=== PATIENT | female | born 1990 | race Caucasian/White ===

== ENCOUNTER 2021-05-16 17:53 | Outpatient (RCR) | payer OTHER, SELFPAY ==
[2021-05-16 19:46] VITALS: BP 111/70; PULSE 115
== END 2021-07-06 09:36 | disposition home or self-care (01) ==
LOC: ANHOBOP 17:53
PROVIDERS: Visit Provider Obstetrics & Gynecology
DX: O60.03 Preterm labor without delivery, third trimester (principal); Z3A.36 36 weeks gestation of pregnancy
CPT/HCPCS: 59025

== ENCOUNTER 2021-05-29 06:06 | Inpatient (IN) | payer OTHER, SELFPAY ==
[2021-05-29] VITALS (29 sets, daily range): BP systolic 104–169; BP diastolic 60–95; PULSE 69–114; RESP 16; TEMP 36.1–36.9; BMI 38.4
--- OUTSIDE RECORDS SUMMARY | 2021-05-29 06:14 | XMS_ITS ---
:1990 Author Care Team Providers Name Role Phone Scarlet Primary Care Provider Unavailable Allergies Code Code System Name Reaction Severity Status Onset NKDA ? Medications Name Status Start Date Stop Date ? ? 17-hydroxyprogesterone Unknown ? Not avail able hydroxyprogesterone and cottonseed oil 17-hydroxyprogesterone Unknown ? Not avail able hydroxyprogesterone and cottonseed oil 17-hydroxyprogesterone Unknown ? Not avail able hydroxyprogesterone and cottonseed oil 17-hydroxyprogesterone Unknown ? Not avail able hydroxyprogesterone and cottonseed oil 17-hydroxyprogesterone Unknown ? Not avail able hydroxyprogesterone and cottonseed oil 17-hydroxyprogesterone Unknown ? Not avail able hydroxyprogesterone and cottonseed oil 17-hydroxyprogesterone Unknown ? Not avail able hydroxyprogesterone and cottonseed oil 17-hydroxyprogesterone Unknown ? Not avail able hydroxyprogesterone and cottonseed oil 17-hydroxyprogesterone Unknown ? Not avail able hydroxyprogesterone and cottonseed oil 17-hydroxyprogesterone Unknown ? Not avail able hydroxyprogesterone and cottonseed oil 17-hydroxyprogesterone Unknown ? Not avail able hydroxyprogesterone and cottonseed oil 17-hydroxyprogesterone Unknown ? Not avail able hydroxyprogesterone and cottonseed oil 17-hydroxyprogesterone Unknown ? Not avail able
--- OUTSIDE RECORDS SUMMARY | 2021-05-29 06:15 | XMS_ITS | Encounter Summary ---
:1990 Author Reason for Visit return OB visit Assessment and Plan 1. Gestational diabetes mellitus 2. RhD negative ? RhoGAM Ultra-Filtered PLUS 1,500 unit (300 mcg) intramuscular syringe ? abo group + rh type, blood Discussion Note: None recorded.Patient educational handouts: No information available. Plan of Care Reminders Provider Appointments None ? ? recorded. [facility] 03/22/2021 [facility] + Rh Type, Blood Hospital (Lab) Referral None ? ? recorded. Procedures None ? ? recorded. Surgeries None ? ? recorded. Imaging None ? ? recorded. Medications Name Start Date ? ? Baqsimi 3 mg/actuation nasal spray ? USE NASALLY NEEDED BD Alcohol Swabs ? USE SIX TIMES DAILY WHILE AWAKE BD Insulin Syringe Ultra-Fine 0.5 mL 31 gauge x 11/06 ? USE FOR INSULIN ADMINISTRATION FeroSul 325 mg (65 mg iron) tablet ? TK ONE T PO QD Humulin N NPH U-100 Insulin (isophane susp) 100 unit/m L subcutaneous ? Inject 20 units in AM and 24 units in PM insulin lispro (U-100) 100 unit/mL subcutaneous soluti on ? Inject 4 units SQ before breakfast and dinner OneTouch Delica Plus Lancet 33 gauge ? USE DIRECTED TO CHECK BLOOD SUGAR FOUR TIMES MELVA
--- OUTSIDE RECORDS SUMMARY | 2021-05-29 06:15 | XMS_ITS ---
:1990 Author Care Team Providers Name Role Phone Valeriano Primary Care Provider Unavailable Allergies Code Code System Name Reaction Severity Status Onset NKDA ? Medications Name Status Start Date Stop Date ? ? Baqsimi 3 mg/actuation nasal spray Active ? Not available USE NASALLY NEEDED BD Alcohol Swabs Active ? Not available USE SIX TIMES DAILY WHILE AWAKE BD Insulin Syringe Ultra-Fine 0.5 mL 31 gauge x / Active ? Not available USE FOR INSULIN ADMINISTRATION Diflucan 150 mg tablet Completed ? 4 Take 1 tablet by oral route for 1 day. Doc-Q-Lace 100 mg capsule Unknown ? Not av ailable TK ONE C PO BID famotidine 20 mg tablet Completed ? 05/10/20 21 TAKE 1 TABLET BY MOUTH TWICE DAILY FeroSul 325 mg (65 mg iron) tablet Active ? Not available Humulin N NPH U-100 Insulin (isophane susp) 100 unit/mL subcutan eous Active ? Not available Inject 20 units in AM and 24 units in PM hydrocodone 5 mg-acetaminophen 325 mg Completed ? 02/14/2021 tablet hydroxyprogesterone caproate (bulk) 100 Unknown ? Not available % powder ibuprofen 800 mg tablet Completed ? 02/15/20 21 TK 1 T PO Q 6 TO 8 H WF PRN P / INFLAMMATION insulin lispro (U-100) 100 unit/mL Active ? Not available subcutaneous solution medroxyprogesterone 150 mg/mL intramuscular suspension Completed ? 02/14/2021 Inject 1 mL every 3 months by intramuscular route.
--- OUTSIDE RECORDS SUMMARY | 2021-05-29 06:15 | XMS_ITS | Encounter Summary ---
:1990 Author Reason for Visit new OB visit Assessment and Plan 1. Routine care ? 28 mg iron-800 mc g tablet 2. Iron deficiency anemia ? ferrous sulfate 325 mg (65 mg iron) tablet 3. Venereal disease screening ? CT + NG DNA, PCR, urine 4. Impaired glucose tolerance ? blood glucose test strips ? glucometer ? lancets ? maternal & medicine referral Discussion Note: None recorded.Patient educational handouts: No information available. Plan of Care Reminders Provider Appointments None ? ? recorded. Lab CT + NG DNA, [facility] PCR, Urine 03/01/2021 Hospital (Lab) Referral [facility] 04/20/2021 [facility] Referral Procedures None ? ? recorded. Surgeries None ? ? recorded. Imaging None ? ? recorded. Medications Name Start Date ? ? Baqsimi 3 mg/actuation nasal spray ? USE NASALLY NEEDED BD Alcohol Swabs ? USE SIX TIMES DAILY WHILE AWAKE BD Insulin Syringe Ultra-Fine 0.5 mL 31 gauge x 16 ? USE FOR INSULIN ADMINISTRATION
--- OUTSIDE RECORDS SUMMARY | 2021-05-29 06:15 | XMS_ITS | Encounter Summary ---
:1990 Author Reason for Visit return OB visit Assessment and Plan 1. Routine care ? streptococcus group B, cul ture, unspecified specimen 2. Gestational diabetes mellitus Discussion Note: None recorded.Patient educational handouts: No information available. Plan of Care Reminders Provider Appointments None recorded. ? ? Lab St[facility], Culture, 05/10/2021 Hospital (Lab) Unspecified Specimen Referral None recorded. ? ? Procedures None recorded. ? ? Surgeries None recorded. ? ? Imaging None recorded. ? ? Medications Name Start Date ? ? Baqsimi 3 mg/actuation nasal spray ? USE NASALLY NEEDED BD Alcohol Swabs ? USE SIX TIMES DAILY WHILE AWAKE BD Insulin Syringe Ultra-Fine 0.5 mL 31 gauge x /16 ? USE FOR INSULIN ADMINISTRATION FeroSul 325 [...] DIRECTED TO CHECK BLOOD SUGAR FOUR TIMES DAILY
--- OUTSIDE RECORDS SUMMARY | 2021-05-29 06:15 | XMS_ITS | Encounter Summary ---
:1990 Author Reason for Visit return OB visit Assessment and Plan 1. Gestational diabetes mellitus Discussion Note: None recorded.Patient educational handouts: No information available. Plan of Care Reminders Provider Appointments None ? ? recorded. Lab None ? ? recorded. Referral None ? ? recorded. Procedures None [...] TO CHECK BLOOD SUGAR FOUR TIMES DAILY OneTouch Ultra Test strips ? USE DIRECTED TO CHECK BLOOD SUGAR FOUR TIMES DAILY OneTouch Ultra2 Meter ? USE DIRECTED 28 mg iron-800 mcg tablet ? TAKE 1 TABLET BY MOUTH ONCE DAILY P
--- OUTSIDE RECORDS SUMMARY | 2021-05-29 06:15 | XMS_ITS | Encounter Summary ---
:1990 Author Reason for Visit return OB visit Assessment and Plan 1. Gestational diabetes mellitus ? Humulin N NPH U-100 Insuli n (isophane susp) 100 unit/mL subcutaneous ? Humalog U-100 Insulin 100 unit/mL subcutaneous solution Discussion Note: None recorded.Patient educational handouts: No [...] x 16 ? USE FOR INSULIN ADMINISTRATION FeroSul 325 [...]
--- OUTSIDE RECORDS SUMMARY | 2021-05-29 06:15 | XMS_ITS | Encounter Summary ---
:1990 Author Reason for Visit OB Ultrasound Assessment and Plan None recorded.Discussion Note: None recorded.Patient educational handouts: No information [...] TAKE 1 TABLET BY MOUTH ONCE DAILY Vitamin 27 mg iron-800 mcg tablet ? Take 1 ta
[2021-05-29 06:58] LABS: Basophils Percent Auto 0.4 % (0.2-1.2); Eosinophils Absolute Auto 0.2 K/mm3 (0-0.3); Hematocrit 35.5 % (37.0-47.0); Hemoglobin 12.4 g/dL (12.0-15.0); Immature Granulocyte Absolute 0.03 K/mm3 (0.00-0.031); Immature Granulocyte Percent A 0.3 % (0-0.5); Lymphocytes Absolute Auto 1.43 K/mm3 (0.9-3.2); Lymphocytes Percent Auto 15.9 % (18.3-44.2); Mean Corpuscular HGB Conc 34.9 g/dl (32-36); Mean Corpuscular Hemoglobin 31.3 pg (26-34); Mean Corpuscular Volume 89.6 fl (80-100); Mean Platelet Volume 11.3 fl (7.4-10.4); Monocytes Absolute Auto 0.3 K/mm3 (0.1-0.6); Monocytes Percent Auto 3.7 % (2.6-8.5); Neutrophils Percent Auto 77.7 % (45.5-73.1); Platelet Count Result 202 k/mm3 (150-375); Red Blood Count 3.96 M/mm3 (4.2-5.4); Red Cell Distribution Width 13.5 % (11.5-14.5)
[2021-05-29 07:03] LABS: Glucose Point of Care 190 mg/dl (65-105)
[2021-05-29] MEDS: INSULIN HUMAN REGULAR (*BKC) 100 UNITS/ML SUB-Q ×2 (07:08→08:21)
[2021-05-29] MEDS: LACTATED RINGERS 1,000 ML 125 ML IV CONT ×2 (07:17→14:38)
[2021-05-29] MEDS: AMPICILLIN 2 GM/NS 100 ML 2 GM/100 ML BAG IVPB (07:19)
[2021-05-29] MEDS: OXYTOCIN 30 UNITS/NS 500 ML 30 UNITS/500 ML BAG IV CONT (07:23)
--- NOTE | 2021-05-29 07:39 | LDADM ---
This patient, Loree Moreno, was admitted to Labor/Delivery/Recovery 108 on 05/29/21 at 06:06. Plans for labor, pain management and were discussed with patient. Patient/family oriented to hospital policies and general routines including ID bracelet, bed and alarms, visiting hours, pain management, procedures, bathroom and other care routines, personal items, smoking policy, room service/diet and guest tray routines, security routines, and visiting hours. Patient/Family are encouraged to report perceived risks to care and to ask questions if they do not understand what they are told or what they should do. See OBIX for further documentation.
[2021-05-29 07:49] LABS: HIV 1/2 Ab P24 Ag Result Negative (Negative)
--- NOTE | 2021-05-29 07:49 | PM.IMHP ---
H&P: HPI History of Present Illness Date/Time: 05/29/21 07:42 Loree is a 31yo G 5 P2112 @ 38.0wks (DAVID 06/12/21) who presents for induction of labor due to uncontrolled A2GDM. She has been co-managed by [facility] but reported at her office visit on 05/24/21 that she ran out of insulin and hadn't used in a week. She had also not been going to her ANT appointments w/ MFM. She reports good movement. Irregular contractions. No VB or LOF. FS this AM is 190; reports eating a sausage, biscuit sandwich this morning. Her is complicated by: - Uncontrolled A2GDM; sugars routinely ranging 130-190 - NPH + humalog / prescribed - H/o stillborn; PPROM @ 23wks - Rh negative; declined rhogam - GBS positive - Anemia on iron daily - Marijuana and tobacco abuse - Scant care w/ 5 visits - Anxiety and depression; not on medications - Obesity; BMI 38 Chief Complaint: induction of labor Review of Systems Review of Systems: All systems reviewed & are unremarkable except as noted in HPI and below (HPI) [facility] Family History Family History Other No pertinent family history Social History Social History Smoking packs per day: 1 Smoking cigarettes per day: 20.0 Years smoked: 22 Smoking pack-years: 22.00 Smoking status: Current every day smoker Tobacco type: cigarettes Second hand tobacco smoke exposure: Yes Substance use: current Last use: 05/15/21 Spiritual care concerns: No Meds Home Medications and Allergies Home Medications Medication Instructions Recorded Confirmed Type insulin NPH isoph U-100 human 20 unit SUBCUT HS 05/16/21 05/16/21 History [Humulin N NPH U-100 Insulin] insulin NPH isoph U-100 human 24 unit SUBCUT QAM 05/16/21 05/16/21 History [Humulin N NPH U-100 Insulin] Allergies Allergy/AdvReac Type Severity Reaction Status Date / Time No Known Allergies Allergy Verified 05/16/21 12:03 Vital Signs Vital Signs - 24 hr 05/29/21 06:32 Pulse Rate 114 H Blood Pressure 118/75 Exam Const: General: cooperative, no acute distress and anxious Nutritional Appearance: obese Resp: Effort & Inspection: normal respiratory effort Cardio: Rate: regular rate GI: Inspection: non-distended GI Palp: No abdominal tenderness and Yes Soft to palpation : Other: FHT's:130's/mod gallo/ + accels/ no decels - cat 1 TOCO: ctx's q2-4min Cervix: 4/50/-3 Membranes: intact Presentation: cephalic Skin: General skin exam: normal color Neuro: General: patient oriented x3 Extrem: General: normal to inspection Psych: Appearance: grossly normal Affect: normal affect Attitude: cooperative Assessment and Plan Assessment and plan (1) White classification A2 gestational diabetes mellitus (GDM), insulin controlled: Code(s): O24.414 - Gestational diabetes mellitus in , insulin controlled Status: Acute (2) : Qualifiers: Weeks of gestation: 38 weeks Qualified Code(s): Z3A.38 - 38 weeks gestation of Code(s): Z34.90 - Encounter for supervision of normal , unspecified, unspecified trimester Status: Acute (3) GBS carrier: Code(s): Z22.330 - Carrier of Group B streptococcus Status: Acute Additional Plan - Admit to L&D for IOL due to uncontrolled A2GDM and non-compliance - Pitocin per protocol - Continuous monitoring; currently reassuring - Ampicillin for GBS + - POC glucose q4h in latent phase; q2h in active phase - Insulin PRN hyperglycemia - Anesthesia consult PRN pain
[2021-05-29 08:12] LABS: Glucose Point of Care 150 mg/dl (65-105)
[2021-05-29 08:16] LABS: Amphetamine Screen Urine Negative (Negative); Barbiturate Screen Urine Negative (Negative); Benzodiazepines Screen Urine Negative (Negative); Cannabinoid Screen Urine Positive (Negative); Cocaine Screen Urine Negative (Negative); Methadone Screen Urine Negative (Negative); Opiate Screen Urine Negative (Negative); Phencyclidine Screen Urine Negative (Negative)
--- NOTE | 2021-05-29 09:20 | WPDANESEPP ---
Anes - Eval Pre Procedure Procedure: labor epidural Date/Time: 05/29/21 09:20 Surgeon: malaika Preop Diagnosis: pain during labor Pre Op Diagnosis: Induction of Labor Patient Data Age: 31 Gender: F Height: 1.68 m Weight: 108 kg Last Vital Signs Temp 36.6 C 05/29/21 07:55 Pulse 83 05/29/21 08:30 BP 133/77 05/29/21 08:30 Allergies Allergy/AdvReac Type Severity Reaction Status Date / Time No Known Allergies Allergy Verified 05/16/21 12:03 Home Medications Medication Instructions Recorded Confirmed Type insulin NPH isoph U-100 human 20 unit SUBCUT HS 05/16/21 05/16/21 History [Humulin N NPH U-100 Insulin] insulin NPH isoph U-100 human 24 unit SUBCUT QAM 05/16/21 05/16/21 History [Humulin N NPH U-100 Insulin] Laboratory Tests 05/29/21 05/29/21 05/29/21 06:44 06:44 06:44 WBC 9.0 K/mm3 K/mm3 (4.5-10.0) RBC 3.96 M/mm3 L M/mm3 (4.2-5.4) Hgb 12.4 g/dL g/dL (12.0-15.0) Hct 35.5 % L % (37.0-47.0) MCV 89.6 fl fl (80-100) MCH 31.3 pg pg (26-34) MCHC 34.9 g/dl g/dl (32-36) RDW 13.5 % % (11.5-14.5) Plt Count 202 k/mm3 k/mm3 (150-375) MPV 11.3 fl H fl (7.4-10.4) Immature Gran % (Auto) 0.3 % % (0-0.5) Neut % (Auto) 77.7 % H % (45.5-73.1) Lymph % (Auto) 15.9 % L % (18.3-44.2) [place] % (Auto) 3.7 % % (2.6-8.5) Eos % (Auto) 2.0 % % (0-4.4) Baso % (Auto) 0.4 % % (0.2-1.2) Lymph # (Auto) 1.43 K/mm3 K/mm3 (0.9-3.2) [place] # (Auto) 0.3 K/mm3 K/mm3 (0.1-0.6) Eos # (Auto) 0.2 K/mm3 K/mm3 (0-0.3) Baso # (Auto) 0.0 K/mm3 K/mm3 (0.0-0.1) Abs Immat Gran (auto) 0.03 K/mm3 K/mm3 (0.00-0.031) Absolute Neuts (auto) 7.0 K/mm3 H K/mm3 (1.3-6.7) Absolute Nucleated RBC 0.0 K/mm3 K/mm3 (0.0-0.012) Nucleated RBC % 0.0 % % (0.0-0.2) POC Capillary Glucose Urine Opiates Screen Urine Methadone Screen Ur Barbiturates Screen Ur Phencyclidine Scrn Ur Amphetamine Screen U Benzodiazepines Scrn Urine Cocaine Screen U Cannabinoids Screen RPR Pending HIV 1&2 Ab/P24 Ag 4thGn Negative (Negative) Blood Type Antibody Screen 05/29/21 05/29/21 05/29/21 06:44 06:59 07:36 WBC RBC Hgb Hct MCV MCH MCHC RDW Plt Count MPV Immature Gran % (Auto) Neut % (Auto) Lymph % (Auto) [place] % (Auto) Eos % (Auto) Baso % (Auto) Lymph # (Auto) [place] # (Auto) Eos # (Auto) Baso # (Auto) Abs Immat Gran (auto) Absolute Neuts (auto) Absolute Nucleated RBC Nucleated RBC % POC Capillary Glucose 190 mg/dl H mg/dl (65-105) Urine Opiates Screen Negative (Negative) Urine Methadone Screen Negative (Negative) Ur Barbiturates Screen Negative (Negative) Ur Phencyclidine Scrn Negative (Negative) Ur Amphetamine Screen Negative (Negative) U Benzodiazepines Scrn Negative (Negative) Urine Cocaine Screen Negative (Negative) U Cannabinoids Screen Positive A (Negative) RPR HIV 1&2 Ab/P24 Ag 4thGn Blood Type AB Negative Antibody Screen Negative 05/29/21 08:10 WBC RBC Hgb Hct MCV MCH MCHC RDW Plt Count MPV Immature Gran % (Auto) Neut % (Auto) Lymph % (Auto) [place] % (Auto) Eos % (Auto) Ba
[2021-05-29 09:29] LABS: Glucose Point of Care 85 mg/dl (65-105)
[2021-05-29] MEDS: AMPICILLIN 1 GM/NS 50 ML 1 GM/50 ML BAG IVPB ×2 (11:01→14:38)
[2021-05-29 11:06] LABS: Glucose Point of Care 94 mg/dl (65-105)
[2021-05-29 13:07] LABS: Glucose Point of Care 86 mg/dl (65-105)
[2021-05-29 13:27] LABS: Rapid Plasma Reagin Non-Reactive (NonReactive)
--- NOTE | 2021-05-29 13:42 | PM.OBPNLAB ---
Pain Control Date/time seen: 05/29/21 13:42 Pain control: tolerating well Pelvic Exam Dilation (cm): 6 Effacement (%): 50 station: -2 Amniotic membrane status: Ruptured (AROM, clear 1335) Contractions Monitor mode: External Contraction frequency: 2 Contraction pattern: Regular Status status: Category l Assessment and Plan Pitocin rate (mU/min): 12 Assessment: active labor Plan: continuous present management
[2021-05-29] MEDS: fentaNYL CITRATE INJ (*CRX) 100 MCG/2 ML VIAL IV PUSH (14:17)
[2021-05-29 15:00] LABS: Glucose Point of Care 84 mg/dl (65-105)
--- NOTE | 2021-05-29 15:48 | PM.OBPRVD ---
OB - Delivery Note Procedure Delivery date: 05/29/21 events: Gestational Diabetes (uncontrolled A2GDM) and Labor Induction Induction method: per pitocin protocol Delivery augmentation: rupture of membranes Delivery monitor: external FHT and external uterine Route of delivery: Laceration Description: None Specimen: Yes (placenta) Quantitative Blood Loss (ml): 250 Anesthesia type: None Disposition: floor [place] Baby Date of : 05/29/21 Time of : 15:34 Weeks of gestation at delivery: 38 gender: Female Weight (pounds): 6 Weight (ounces): 1 presentation: vertex position: Right Occiput Anterior (compound; right arm ) cord vessel description: 3 Vessels and Nuchal Cord score one minute: 5 score five minutes: 8 Narrative: Loree rapidly progressed to 9 cm and had strong desire to push. The anterior lip was then reduced. She continuously pushed due to pain and ultimately delivered the head. Compound presentation with the right arm up by the face was noted. Pressure was applied to the anterior shoulder but did not deliver. The posterior arm was easily delivered and the anterior shoulder and infants body then delivered. A nuchal cord was noted but unable to be reduced and was delivered through. The infant was immediately placed in the scan and had 1 weak cry. The umbilical cord was then clamped and cut. The pediatric nurses took the baby over to the warmer for further evaluation and stimulation. A segment of cord was collected for cord gases and the remaining cord blood was collected for typing. With Pitocin running, and gentle downward traction on the cord the placenta delivered without complications. Patient was examined and good fundal tone was noted with minimal bleeding. No lacerations were noted. Patient was cleaned and a pad was placed. Mom and baby were left bonding in the birthing suite. Sponge, lap, instrument, and needle counts were correct at the end of the procedure.
[2021-05-29] MEDS: OXYTOCIN 30 UNITS/NS 500 ML 30 UNITS/500 ML BAG 125 UNITS IV CONT (16:08)
[2021-05-29] MEDS: NICOTINE (*PBKC) 21 MG PATCH 1 PATCH TRANSDERM (17:06)
[2021-05-29] MEDS: IBUPROFEN 600 MG TABLET PO (17:07)
--- NOTE | 2021-05-29 18:40 | OBPPTRN ---
Patient transferred to post room #292 via wheelchair. Support person present. Oriented to unit, room, information board, rooming in, admission packet and security measures. Patient verbalizes understanding.
[2021-05-30] MEDS: IBUPROFEN 600 MG TABLET PO (05:09)
[2021-05-30 05:32] LABS: Hematocrit 31.1 % (37.0-47.0); Hemoglobin 10.6 g/dL (12.0-15.0)
[2021-05-30 07:25] VITALS: BP 131/80; PULSE 87; RESP 16; TEMP 36.4; O2SAT 100
[2021-05-30 07:50] LABS: Glucose Point of Care 88 mg/dl (65-105)
--- NOTE | 2021-05-30 08:10 | PM.OBPNVD ---
OB - PN: Subj Subjective Date/time seen: 05/30/21 07:00 PPD#1 Loree reports doing well this morning. Her pain is controlled with PO pain meds. She has tolerated regular diet. She has passed flatus, voided, ambulated. 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 She is bottle feeding. She would like to go home today. She denies CP, SOB, fever, chills, HAJI, dizziness, palpitations, N/V, HAJI or vision changes. OB - PN: Obj Data Labs CBC & Chem 7: 05/30/21 04:22 Labs: Laboratory Results - last 24 hr 05/29/21 05/29/21 05/29/21 06:44 06:44 06:44 WBC 9.0 RBC 3.96 L Hgb 12.4 Hct 35.5 L MCV 89.6 MCH 31.3 MCHC 34.9 RDW 13.5 Plt Count 202 MPV 11.3 H Immature Gran % (Auto) 0.3 Neut % (Auto) 77.7 H Lymph % (Auto) 15.9 L [place] % (Auto) 3.7 Eos % (Auto) 2.0 Baso % (Auto) 0.4 Lymph # (Auto) 1.43 [place] # (Auto) 0.3 Eos # (Auto) 0.2 Baso # (Auto) 0.0 Abs Immat Gran (auto) 0.03 Absolute Neuts (auto) 7.0 H Absolute Nucleated RBC 0.0 Nucleated RBC % 0.0 POC Capillary Glucose Urine Opiates Screen Urine Methadone Screen Ur Barbiturates Screen Ur Phencyclidine Scrn Ur Amphetamine Screen U Benzodiazepines Scrn Urine Cocaine Screen U Cannabinoids Screen RPR Non-reactive HIV 1&2 Ab/P24 Ag 4thGn Negative Blood Type Antibody Screen 05/29/21 05/29/21 05/29/21 06:44 06:59 07:36 WBC RBC Hgb Hct MCV MCH MCHC RDW Plt Count MPV Immature Gran % (Auto) Neut % (Auto) Lymph % (Auto) [place] % (Auto) Eos % (Auto) Baso % (Auto) Lymph # (Auto) [place] # (Auto) Eos # (Auto) Baso # (Auto) Abs Immat Gran (auto) Absolute Neuts (auto) Absolute Nucleated RBC Nucleated RBC % POC Capillary Glucose 190 H Urine Opiates Screen Negative Urine Methadone Screen Negative Ur Barbiturates Screen Negative Ur Phencyclidine Scrn Negative Ur Amphetamine Screen Negative U Benzodiazepines Scrn Negative Urine Cocaine Screen Negative U Cannabinoids Screen Positive A RPR HIV 1&2 Ab/P24 Ag 4thGn Blood Type AB Negative Antibody Screen Negative 05/29/21 05/29/21 05/29/21 08:10 09:27 11:00 WBC RBC Hgb Hct MCV MCH MCHC RDW Plt Count MPV Immature Gran % (Auto) Neut % (Auto) Lymph % (Auto) [place] % (Auto) Eos % (Auto) Baso % (Auto) Lymph # (Auto) [place] # (Auto) Eos # (Auto) Baso # (Auto) Abs Immat Gran (auto) Absolute Neuts (auto) Absolute Nucleated RBC Nucleated RBC % POC Capillary Glucose 150 H 85 94 Urine Opiates Screen Urine Methadone Screen Ur Barbiturates Screen Ur Phencyclidine Scrn Ur Amphetamine Screen U Benzodiazepines Scrn Urine Cocaine Screen U Cannabinoids Screen RPR HIV 1&2 Ab/P24 Ag 4thGn Blood Type Antibody Screen 05/29/21 05/29/21 05/30/21 12:59 14:57 04:22 WBC RBC Hgb 10.6 L Hct 31.1 L MCV MCH MCHC RDW Plt Count MPV Immature Gran % (Auto) Neut % (Auto) Lymph % (Auto) [place] % (Auto) Eos % (Auto) Baso % (Auto) Lymph # (Auto) [place] # (Auto) Eos # (Auto) Baso # (Auto) Abs Immat Gran (auto) Absolute Neuts (auto) Absolute Nucleated RBC Nucleated RBC % POC Capillary Glucose 86 84 Urine Opiates Screen Urine Methadone Screen Ur Barbiturates Screen Ur Phencyclidine Scrn Ur Amphetamine Screen U Benzodiazepines Scrn Urine Cocaine Screen U Cannabinoids Screen RPR HIV 1&2 Ab/P24 Ag 4thGn Blood Type Antibody Screen 05/30/21 04:22 WBC RBC Hgb Hct MCV MCH MCHC RDW Plt Count MPV Immature Gran % (Auto) Neut % (Auto) Lymph % (Auto) [place] % (Auto) Eos % (Auto) Baso % (Auto) Lymph # (Auto) [place] # (Auto) Eos # (Auto) Baso
--- NOTE | 2021-05-30 10:19 | PCCCNOTE ---
Addendum entered by JACQUE Rivera 05/30/21 16:40: Received notification that DCFS will not be taking a report. Nursing notified. Addendum entered by JACQUE Rivera 05/30/21 13:36: Did submit online DCFS report #[id number] regarding below information. Awaiting determination. Original Note: Care Coordination Note Met with pt. and FOB Alex. This is their 3rd child. They both report they live at home together with their children. Pt. reports it has been difficult to collect baby items however does have a car seat, crib, clothing, diapers and bottles at home. She does request some formula at discharge so that she does not have to venture out with the baby in the colder weather. Nursing was notified. Provided resources for pt. including WIC services, she is current with [facility] and will think about setting up WIC at discharge. Pt. admits to marijuana use during , she reports she is also aware that baby's urine tested negative. Meconium is still pending. Per pt. she has spoken with Dr. Bal and will not breast feed or smoke marijuana at discharge. Pt. denies a reliance on marijuana. Pt. does admit to transportation difficulty during which caused her to miss several appointments. Provided information for [employer] line to assist pt. in getting to all appointments in the future. Pt. was receptive to information. Pt. also reports difficulty getting her insulin approved through her [place] insurance however states they finally approved her insulin two weeks ago. Is aware she can speak to her pharmacist and PMD to ensure that all medication is in formulary and covered by [place] insurance in the future. Offered a gift basket however declines saying she has all necessary clothing and blankets at home for the child. Pt. and FOB deny any further case management needs.
[2021-05-30 11:41] VITALS: BP 122/77; PULSE 90; RESP 18; TEMP 36.9; O2SAT 99
[2021-05-30] MEDS: RHO(D) IMMUNE GLOBULIN 300 MCG/2 ML SYRINGE IM (13:50)
--- NOTE | 2021-05-31 13:25 | PM.OBDSVD ---
DS: Admitting Diagnosis Discharge Date 05/30/21 Admitting Diagnosis induction of labor uncontrolled A2GDM GBS + DS: Discharge Diagnosis Discharge Diagnosis (1) Status post normal vaginal delivery: Status: Acute OB - DS: Summary OB Procedures : NST and Ultrasound OB Procedures Intrapartum: Spontaneous Vag Delivery OB Procedures: : None and RHo (D) lg Peripartum Data Delivery Method: Natural Vaginal Laceration Description: None complications: none [place] 1: Gender: Female Disposition of : home Status at Discharge Functional status at discharge: independent ambulation Overall status at discharge: patient is back to baseline Time Spent with Patient Time attestation: Total time spent providing and/or coordinating discharge services: Time spent: Less than 30 minutes Exam Const: General: cooperative, comfortable and no acute distress Nutritional Appearance: obese Resp: Effort & Inspection: normal respiratory effort Cardio: Rate: regular rate GI: Inspection: normal to inspection and non-distended GI Palp: No abdominal tenderness and Yes Soft to palpation Auscultation: normal bowel sounds : Other: fundus firm Skin: General skin exam: normal color Neuro: General: patient oriented x3 Extrem: General: normal to inspection Psych: Appearance: grossly normal Affect: normal affect Attitude: cooperative DS: Data Data Completed and Pending Pending studies at discharge: Pending at discharge 05/29/21 15:38 Surgical [PTH] Routine Labs on day of discharge: Labs from last 24 hours 05/30/21 04:22 Blood Type AB Negative Antibody Screen Negative Screen Negative Baby's Blood Type B pos Baby's EDMUNDO Negative Doses of RhIg Required 1 Discharge Plan Discharge Attending physician on discharge: Lucero Bal Discharging Clinician: Lucero Bal Anticipated Discharge Date/Time: 05/30/21 18:00 Patient Disposition: Home, Self-Care Activity: pelvic rest Diet: regular Discharge Instructions: Per Care Coordination: Please contact your [employer] if you need assistance with transportation services to your upcoming medical appointments. [employer]'s transportation line is . Education: Mom and Baby Guide Given to: Mother Follow-Up: Call your delivering provider's office for an appointment to be seen in: 4 Weeks Mom and baby should come to the [facility] for the follow-up appointment. Appointment Date/Time: June 01, 2021 at 10:00 am What to expect at your follow-up visit: Blood Pressure Check Physical Assessment Call [phone] if you are unable to keep your appointment time. BREAST CARE: * Wear a snug supportive bra. * For engorgement discomfort: Breast Feeding: * Apply warm moist washcloths * Express milk as needed to relieve engorgement * Wear loose clothing Bottle Feeding: * May apply ice packs * For sore nipples: * Identify correct latch-on * Apply warm moist washcloths before and after nursing * Air dry nipples after nursing * May apply Lansinoh cream to nipples EPISIOTOMY/PERINEAL CARE: * Until bleeding stops, use your meche bottle after urinating * Change your pad frequently throughout the day * You may take sitz baths several times a day (fill your bathtub with warm water and soak for 20 minutes.) Do NOT bathe in the water * No tub baths until seen by your physician - You may shower ACTIVITY: * Rest as much as possible. * Do not exercise or lift anything heavier than your baby (such as laundry or other children.) * Avoid stairs or driving as much as possible. * Do not put anything into the vagina. No douching, tampons, or sexual activity until seen by physician. NOTIFY PHYSICIAN IF YOU HAVE ANY QUESTIONS OR IF ANY OF THE FOLLOWING
[2021-06-01 10:33] VITALS: BP 142/82; PULSE 92; RESP 20; TEMP 36.5; O2SAT 100
== END 2021-05-30 18:21 | disposition home or self-care (01) | DRG 560 ==
LOC: ANHLDR 06:13 → ANHOB2 18:42
PROVIDERS: Admitting Provider Obstetrics & Gynecology; Visit Provider Obstetrics & Gynecology
DX: O99.824 Streptococcus B carrier state complicating childbirth (principal); O99.02 Anemia complicating childbirth; D64.9 Anemia, unspecified; O99.214 Obesity complicating childbirth; E66.9 Obesity, unspecified; O99.334 Smoking (tobacco) complicating childbirth; F17.210 Nicotine dependence, cigarettes, uncomplicated; O24.424 Gestational diabetes mellitus in childbirth, insulin controlled; O32.2XX0 Maternal care for transverse and oblique lie, not applicable or unspecified; O69.81X0 Labor and delivery complicated by cord around neck, without compression, not applicable or unspecified; Z3A.38 38 weeks gestation of pregnancy; Z37.0 Single live birth
CPT/HCPCS: 36415; 80307; 82948; 84112; 85014; 85018; 85025; 85461; 86592; 86703; 86850; 86900; 86901; 88307; 90384; A9270; G0432; J0290; J1815; J2590; J2790; J3010; J7120